=== PATIENT | male | born 1950 | race African-American/Black ===

== ENCOUNTER 2019-07-28 11:22 | Inpatient (IN) | payer MEDICARE, MEDICAID ==
[~2019-07-28] VITALS: Ht 190.5 cm; Wt 68.0 kg
[2019-07-28 12:33] LABS: BASOPHILS % 0.8 % (0.0-2.0); EOSINOPHILS % 4.2 % (0.0-5.0); HEMATOCRIT. 32.9 % (42.0-52.0); HEMOGLOBIN. 10.9 g/dL (14.0-18.0); LYMPHOCYTES % 24.1 % (20.0-50.0); MEAN CORPUSCULAR HEMOGLOBIN 27.3 pg (28.0-32.0); MEAN CORPUSCULAR VOLUME 82.5 fL (80.0-94.0); MEAN PLATELET VOLUME 8.6 fl (7.4-10.4); MONOCYTES % 7.5 % (2.0-8.0); NEUTROPHILS % 63.4 % (40.0-76.0); PLATELET 222 x1000/uL (130-400); RED BLOOD CELL COUNT 3.99 mill/uL (4.7-6.1); RED CELL DISTRIBUTION WIDTH 15.4 % (11.6-14.6)
[2019-07-28 12:39] LABS: CHLORIDE 110 mEq/L (98-107)
[2019-07-28] MEDS ORDERED: GUAIFENESIN 200MG/10ML SUGAR FREE UDC PO PRN (14:15)
[2019-07-28] MEDS ORDERED: NITROGLYCERIN 0.4MG TABLET SL SL PRN (14:15)
[2019-07-28] MEDS ORDERED: IPRATROPIUM/ALBUTEROL 0.5-3(2.5)MG/3ML NEB HHN PRN (14:15)
[2019-07-28] MEDS ORDERED: ONDANSETRON HCL 4MG/2ML INJ IV PRN (14:15)
[2019-07-28] MEDS ORDERED: ACETAMINOPHEN 325MG TABLET PO PRN (14:15)
[2019-07-28] MEDS ORDERED: CLONIDINE 0.1MG TABLET PO PRN (14:15)
[2019-07-28] MEDS ORDERED: DOCUSATE SODIUM 100MG CAPSULE PO PRN (14:15)
[2019-07-28] MEDS ORDERED: LORAZEPAM 0.5MG TABLET PO PRN (14:15)
[2019-07-28] MEDS ORDERED: MAGNESIUM/ALUMINUM HYDROXIDE/SIMETHICONE 30ML UDC PO PRN (14:15)
[2019-07-28 14:48] LABS: ETHANOL BLOOD < 10 mg/dL
[2019-07-28 14:51] LABS: TOTAL IRON BINDING CAPACITY 234 ug/dL (250-450)
[2019-07-28 14:52] LABS: FOLIC ACID (FOLATE) SERUM 12.8 ng/mL (>5.38)
[2019-07-28 14:53] LABS: T4 FREE 1.23 ng/dL (0.76-1.46)
[2019-07-28] MEDS ORDERED: POTASSIUM CHLORIDE 20MEQ TABLET SR PO NR (15:20)
[2019-07-28] MEDS ORDERED: TRAMADOL 50MG TABLET PO PRN (16:13)
[2019-07-28] MEDS ORDERED: KETOROLAC 15MG/ML VIAL IV PRN (16:13)
[2019-07-28 18:44] VITALS: BP 156/56
[2019-07-28 20:00] VITALS: BP 145/63
[2019-07-28] MEDS ORDERED: ZOLPIDEM TARTRATE 5MG TABLET PO PRN (21:00)
[2019-07-28] MEDS: ENOXAPARIN 40MG/0.4ML SYR SUBCUT SCH (21:47)
[2019-07-28] MEDS: FAMOTIDINE 20MG TABLET PO SCH (21:47)
[2019-07-28] MEDS: SUCRALFATE 1 G/10 ML UDC PO SCH (21:47)
[2019-07-28] MEDS: FERROUS SULFATE 300MG/5ML UDC PO SCH (21:48)
[2019-07-29] VITALS: BP 104/47
[2019-07-29 00:02] LABS: CREATINE KINASE MB FRACTION 4.9 ng/mL (0.5-3.6)
[2019-07-29 08:00] VITALS: BP 114/70
[2019-07-29 08:05] LABS: CREATINE KINASE MB FRACTION 3.2 ng/mL (0.5-3.6)
[2019-07-29] MEDS: SUCRALFATE 1 G/10 ML UDC PO SCH ×4 (08:44→20:34)
[2019-07-29] MEDS: FERROUS SULFATE 300MG/5ML UDC PO SCH ×3 (08:44→17:37)
[2019-07-29] MEDS: FAMOTIDINE 20MG TABLET PO SCH ×2 (08:45→20:34)
[2019-07-29] MEDS: ASPIRIN 325MG EC TABLET PO SCH (08:45)
[2019-07-29 12:00] VITALS: BP 125/77
[2019-07-29 16:00] VITALS: BP 110/57
[2019-07-29 20:00] VITALS: BP 126/49
[2019-07-29] MEDS: ENOXAPARIN 40MG/0.4ML SYR SUBCUT SCH (20:34)
[2019-07-30] VITALS: BP 132/58
[2019-07-30 04:00] VITALS: BP 131/62
[2019-07-30] MEDS: SUCRALFATE 1 G/10 ML UDC PO SCH (08:22)
[2019-07-30] MEDS: FERROUS SULFATE 300MG/5ML UDC PO SCH (08:23)
[2019-07-30] MEDS: ASPIRIN 325MG EC TABLET PO SCH (08:24)
[2019-07-30] MEDS: FAMOTIDINE 20MG TABLET PO SCH (08:24)
== END 2019-07-30 09:29 | disposition home or self-care (01) | DRG 593 ==
LOC: ER 11:27 → 7WST 13:36 → EDBEDREQTM 13:41 → SUPCPDRO 14:07 → ENRESERV 17:13 → 7WST 20:44
PROVIDERS: ADMIT Internal Medicine; ATTEND Internal Medicine
DX: L89.323 Pressure ulcer of left buttock, stage 3 (principal); I69.354 Hemiplegia and hemiparesis following cerebral infarction affecting left non-dominant side; E44.1 Mild protein-calorie malnutrition; L89.159 Pressure ulcer of sacral region, unspecified stage; L89.313 Pressure ulcer of right buttock, stage 3; R60.0 Localized edema; E87.6 Hypokalemia; D63.8 Anemia in other chronic diseases classified elsewhere; I10 Essential (primary) hypertension; R07.2 Precordial pain; J44.9 Chronic obstructive pulmonary disease, unspecified; R26.2 Difficulty in walking, not elsewhere classified
CPT/HCPCS: 36415; 71045; 80320; 82550; 82553; 82607; 82746; 83036; 83540; 83550; 83880; 84134; 84439; 84443; 84484; 93005; 93306; 93970; 97162; 99285; J1650; G0480

== ENCOUNTER 2019-10-28 16:54 | Emergency (ER) | payer MEDICARE, MEDICAID ==
[~2019-10-28] VITALS: Ht 182.9 cm; Wt 80.0 kg
[2019-10-28 17:16] VITALS: BP 148/78
[2019-10-28] MEDS ORDERED: HYDROCODONE/APAP 7.5/325MG 1 TAB TABLET PO ONE (21:30)
[2019-10-28] MEDS ORDERED: IBUPROFEN 800MG TABLET PO ONE (21:30)
== END 2019-10-28 23:44 | disposition home or self-care (01) ==
LOC: ER 16:54
DX: S93.402A Sprain of unspecified ligament of left ankle, initial encounter (principal); W01.0XXA Fall on same level from slipping, tripping and stumbling without subsequent striking against object, initial encounter; Y93.01 Activity, walking, marching and hiking; Y92.89 Other specified places as the place of occurrence of the external cause
CPT/HCPCS: 29515; 73610; 99283

== ENCOUNTER 2020-03-11 14:38 | Emergency (ER) | payer MEDICARE, MEDICAID ==
[~2020-03-11] VITALS: Ht 177.8 cm; Wt 69.0 kg
[2020-03-11] MEDS ORDERED: CEPHALEXIN 250MG CAPSULE PO ONE (16:15)
[2020-03-11] MEDS ORDERED: ACETAMINOPHEN 500MG TABLET PO ONE (16:15)
[2020-03-11] MEDS ORDERED: SULFAMETHOXAZOLE/TRIMETHOPRIM 800/160MG TABLET PO ONE (16:15)
[2020-03-11 17:35] VITALS: BP 138/66
== END 2020-03-11 19:30 | disposition home or self-care (01) ==
LOC: ER 15:04
DX: L03.116 Cellulitis of left lower limb (principal); L03.115 Cellulitis of right lower limb; R03.0 Elevated blood-pressure reading, without diagnosis of hypertension; Z59.0 Homelessness
CPT/HCPCS: 99284

== ENCOUNTER 2020-05-02 09:00 | Inpatient (IN) | payer MEDICARE, MEDICAID ==
[~2020-05-02] VITALS: Ht 180.3 cm; Wt 72.6 kg
[2020-05-02] MEDS ORDERED: HYDROCODONE/ACETAMINOPHEN 5/325MG TABLET PO STA (09:47)
[2020-05-02 10:05] LABS: BASOPHILS % 0.6 % (0.0-2.0); EOSINOPHILS % 4.7 % (0.0-5.0); HEMATOCRIT. 32.9 % (42.0-52.0); HEMOGLOBIN. 10.9 g/dL (14.0-18.0); LYMPHOCYTES % 21.6 % (20.0-50.0); MEAN CORPUSCULAR HEMOGLOBIN 27.4 pg (28.0-32.0); MEAN CORPUSCULAR VOLUME 82.8 fL (80.0-94.0); MEAN PLATELET VOLUME 8.4 fl (7.4-10.4); MONOCYTES % 6.9 % (2.0-8.0); NEUTROPHILS % 66.2 % (40.0-76.0); PLATELET 228 x1000/uL (130-400); PROTHROMBIN TIME 10.3 sec (9.6-11.0); RED BLOOD CELL COUNT 3.98 mill/uL (4.7-6.1); RED CELL DISTRIBUTION WIDTH 15.1 % (11.6-14.6)
[2020-05-02 10:06] LABS: CHLORIDE 108 mEq/L (98-107)
[2020-05-02] MEDS: DEXT 5%/0.45% NACL 1000ML 1,000 ML IV SCH (12:14)
[2020-05-02] MEDS ORDERED: CLONIDINE 0.1MG TABLET PO PRN (12:15)
[2020-05-02] MEDS ORDERED: MAGNESIUM/ALUMINUM HYDROXIDE/SIMETHICONE 30ML UDC PO PRN (12:15)
[2020-05-02] MEDS ORDERED: ONDANSETRON HCL 4MG/2ML INJ IV PRN (12:15)
[2020-05-02] MEDS ORDERED: IPRATROPIUM/ALBUTEROL 0.5-3(2.5)MG/3ML NEB NEB PRN (12:15)
[2020-05-02] MEDS ORDERED: DOCUSATE SODIUM 100MG CAPSULE PO PRN (12:15)
[2020-05-02] MEDS ORDERED: DIPHENHYDRAMINE 50MG/ML VIAL IV PRN (12:15)
[2020-05-02] MEDS ORDERED: ACETAMINOPHEN 325MG TABLET PO PRN (12:15)
[2020-05-02] MEDS ORDERED: NA PHOS,M-B/NA PHOS,DI-BA ENEMA 118ML PR PRN (12:15)
[2020-05-02] MEDS ORDERED: MORPHINE SULFATE 2 MG/ML CPJ (NOT FOR IM USE) IV PRN (12:15)
[2020-05-02] MEDS ORDERED: LORAZEPAM 2MG/ML CPJ IV PRN (12:15)
[2020-05-02] MEDS ORDERED: GUAIFENESIN 200MG/10ML SUGAR FREE UDC PO PRN (12:15)
[2020-05-02] MEDS ORDERED: IOHEXOL-300 100 ML BOTTLE ONE (12:56)
[2020-05-02] MEDS: ENOXAPARIN 40MG/0.4ML SYR SUBCUT SCH (13:00)
[2020-05-02 15:00] VITALS: BP 145/82
[2020-05-02 17:34] LABS: CHLORIDE 106 mEq/L (98-107)
[2020-05-02 20:00] VITALS: BP 149/47
[2020-05-02] MEDS: HYDROCODONE/ACETAMINOPHEN 5/325MG TABLET PO PRN (22:53)
[2020-05-03] VITALS: BP_SYST 116; BP_SYST 126; BP_DIAS 50; BP_DIAS 59
[2020-05-03 04:00] VITALS: BP 112/55
[2020-05-03] MEDS: DEXT 5%/0.45% NACL 1000ML 1,000 ML IV SCH ×2 (05:26→21:16)
[2020-05-03 07:19] LABS: BASOPHILS % 0.7 % (0.0-2.0); EOSINOPHILS % 6.6 % (0.0-5.0); HEMATOCRIT. 30.8 % (42.0-52.0); HEMOGLOBIN. 10.3 g/dL (14.0-18.0); LYMPHOCYTES % 36.2 % (20.0-50.0); MEAN CORPUSCULAR HEMOGLOBIN 27.4 pg (28.0-32.0); MEAN CORPUSCULAR VOLUME 82.4 fL (80.0-94.0); MEAN PLATELET VOLUME 8.7 fl (7.4-10.4); MONOCYTES % 6.4 % (2.0-8.0); NEUTROPHILS % 50.1 % (40.0-76.0); PLATELET 189 x1000/uL (130-400); RED BLOOD CELL COUNT 3.74 mill/uL (4.7-6.1); RED CELL DISTRIBUTION WIDTH 14.5 % (11.6-14.6)
[2020-05-03 07:20] LABS: CHLORIDE 108 mEq/L (98-107)
[2020-05-03 07:27] LABS: LDL CHOLESTEROL 97 mg/dL (5-100)
[2020-05-03 07:28] LABS: HDL CHOLESTEROL 57 mg/dL (40-59)
[2020-05-03 07:29] LABS: T4 FREE 0.94 ng/dL (0.76-1.46)
[2020-05-03 08:00] VITALS: BP 116/65
[2020-05-03] MEDS: ENOXAPARIN 40MG/0.4ML SYR SUBCUT SCH (09:45)
[2020-05-03 12:00] VITALS: BP 110/54
[2020-05-03 20:00] VITALS: BP 116/73
[2020-05-04] VITALS: BP 115/75
[2020-05-04 04:00] VITALS: BP 114/64
[2020-05-04] MEDS: HYDROCODONE/ACETAMINOPHEN 5/325MG TABLET PO PRN (04:22)
[2020-05-04 08:00] VITALS: BP 116/78
[2020-05-04] MEDS: ENOXAPARIN 40MG/0.4ML SYR SUBCUT SCH (09:00)
== END 2020-05-04 09:18 | disposition left against medical advice (07) | DRG 340 ==
LOC: ER 09:18 → EDBEDREQ 12:11 → EDBEDREQTM 12:11 → 6EST 12:18 → ENRESERV 14:25
PROVIDERS: ADMIT Internal Medicine; ATTEND Internal Medicine
DX: S72.111A Displaced fracture of greater trochanter of right femur, initial encounter for closed fracture (principal); S72.112A Displaced fracture of greater trochanter of left femur, initial encounter for closed fracture; S40.011A Contusion of right shoulder, initial encounter; E78.5 Hyperlipidemia, unspecified; I10 Essential (primary) hypertension; W18.30XA Fall on same level, unspecified, initial encounter; Z53.29 Procedure and treatment not carried out because of patient's decision for other reasons; R26.2 Difficulty in walking, not elsewhere classified; Z59.0 Homelessness; Z82.49 Family history of ischemic heart disease and other diseases of the circulatory system; Y93.89 Activity, other specified; Y92.811 Bus as the place of occurrence of the external cause; Y99.8 Other external cause status
CPT/HCPCS: 36415; 71260; 73030; 73502; 74177; 80048; 80053; 80061; 84439; 84443; 85025; 99285; J1650; J2270; Q9967

== ENCOUNTER 2020-06-07 14:46 | Emergency (ER) | payer MEDICARE, MEDICAID ==
[~2020-06-07] VITALS: Ht 177.8 cm; Wt 80.0 kg
[2020-06-07 16:36] LABS: BASOPHILS % 0.9 % (0.0-2.0); EOSINOPHILS % 3.8 % (0.0-5.0); HEMATOCRIT. 30.9 % (42.0-52.0); HEMOGLOBIN. 9.9 g/dL (14.0-18.0); LYMPHOCYTES % 34.3 % (20.0-50.0); MEAN CORPUSCULAR HEMOGLOBIN 26.2 pg (28.0-32.0); MEAN CORPUSCULAR VOLUME 81.5 fL (80.0-94.0); MEAN PLATELET VOLUME 8.8 fl (7.4-10.4); MONOCYTES % 8.5 % (2.0-8.0); NEUTROPHILS % 52.5 % (40.0-76.0); PLATELET 210 x1000/uL (130-400); RED BLOOD CELL COUNT 3.79 mill/uL (4.7-6.1); RED CELL DISTRIBUTION WIDTH 14.8 % (11.6-14.6)
[2020-06-07 16:41] LABS: CHLORIDE 110 mEq/L (98-107)
[2020-06-07 18:26] LABS: CLARITY URINE CLEAR (CLEAR); COLOR URINE YELLOW (YELLOW); KETONES URINE NEGATIVE (NEGATIVE); LEUKOCYTE ESTERASE URINE 3+ (NEGATIVE); NITRITE URINE NEGATIVE (NEGATIVE); OCCULT BLOOD URINE 2+ (NEGATIVE); PH URINE 7.5 (4.5-8.0); PROTEIN URINE 1+ (NEGATIVE); SPECIFIC GRAVITY URINE 1.012 (1.005-1.030); UROBILINOGEN URINE 0.2 E.U./dL (0.2-1.0)
[2020-06-07 18:47] LABS: *AMPHETAMINES SCREEN URINE NEGATIVE (NEGATIVE); *BARBITURATES SCREEN URINE NEGATIVE (NEGATIVE)
[2020-06-07 18:48] LABS: *BENZODIAZEPINES SCREEN URINE NEGATIVE (NEGATIVE); *COCAINE SCREEN URINE NEGATIVE (NEGATIVE); CANNABINOID URINE SCREEN NEGATIVE (NEGATIVE); METHADONE URINE SCREEN NEGATIVE (NEGATIVE); OPIATES URINE SCREEN NEGATIVE (NEGATIVE); PHENCYCLIDINE URINE SCREEN NEGATIVE (NEGATIVE)
[2020-06-07] MEDS ORDERED: SULFAMETHOXAZOLE/TRIMETHOPRIM 800/160MG TABLET PO ONE (21:15)
[2020-06-07] MEDS ORDERED: MAGNESIUM/ALUMINUM HYDROXIDE/SIMETHICONE 30ML UDC PO PRN (23:00)
[2020-06-07] MEDS ORDERED: IPRATROPIUM/ALBUTEROL 0.5-3(2.5)MG/3ML NEB HHN PRN (23:00)
[2020-06-07] MEDS ORDERED: GUAIFENESIN 200MG/10ML SUGAR FREE UDC PO PRN (23:00)
[2020-06-07] MEDS ORDERED: LORAZEPAM 2MG/ML CPJ IV PRN (23:00)
[2020-06-07] MEDS ORDERED: CLONIDINE 0.1MG TABLET PO PRN (23:00)
[2020-06-07] MEDS ORDERED: DOCUSATE SODIUM 100MG CAPSULE PO PRN (23:00)
[2020-06-07] MEDS ORDERED: HYDROCODONE/ACETAMINOPHEN 10/325MG TABLET PO PRN (23:00)
[2020-06-07] MEDS ORDERED: HYDRALAZINE 20MG/ML VIAL IV PRN (23:00)
[2020-06-07] MEDS ORDERED: ACETAMINOPHEN 325MG TABLET PO PRN (23:00)
[2020-06-07] MEDS ORDERED: DIPHENHYDRAMINE 50MG/ML VIAL IV PRN (23:00)
[2020-06-07] MEDS ORDERED: MORPHINE SULFATE 2 MG/ML CPJ (NOT FOR IM USE) IV PRN (23:00)
[2020-06-07] MEDS ORDERED: CEFTRIAXONE 1 G PREMIX 50 ML IV SCH (23:00)
[2020-06-07] MEDS ORDERED: ONDANSETRON HCL 4MG/2ML INJ IV PRN (23:00)
[2020-06-08] MEDS ORDERED: CEFTRIAXONE 1,000 MG in DEXTROSE 5% WATER 50 ML IV SCH ×2
[2020-06-08 00:47] LABS: HEPATITIS B SURFACE ANTIGEN NEGATIVE
[2020-06-08 01:17] LABS: HEPATITIS A AB IGM NEGATIVE (NEGATIVE)
[2020-06-08 02:23] VITALS: BP 124/55
[2020-06-08] MEDS ORDERED: SODIUM CHLORIDE 0.9% INJ 3ML FLUSH IVF SCH (06:00)
[2020-06-08] MEDS ORDERED: ENOXAPARIN 40MG/0.4ML SYR SUBCUT SCH (09:00)
== END 2020-06-08 04:26 | disposition left against medical advice (07) ==
LOC: ER 14:46 → CANBEDREQ 06-08 05:16
DX: Z03.818 Encounter for observation for suspected exposure to other biological agents ruled out (principal); S72.002S Fracture of unspecified part of neck of left femur, sequela; R55 Syncope and collapse; N10 Acute pyelonephritis; N20.0 Calculus of kidney; Z59.0 Homelessness; E88.09 Other disorders of plasma-protein metabolism, not elsewhere classified; D72.819 Decreased white blood cell count, unspecified; D72.821 Monocytosis (symptomatic); D50.9 Iron deficiency anemia, unspecified; E16.2 Hypoglycemia, unspecified; X58.XXXS Exposure to other specified factors, sequela
CPT/HCPCS: 36415; 71045; 72040; 72100; 73590; 73620; 76700; 80053; 80305; 81003; 83605; 83880; 84484; 85025; 85651; 86705; 86709; 86803; 87040; 87086; 87340; 93005; 93970; 96365; 99285; J0696; J7060

== ENCOUNTER 2020-06-15 04:22 | Emergency (ER) | payer MEDICARE, MEDICAID ==
[~2020-06-15] VITALS: Ht 182.9 cm; Wt 82.0 kg
[2020-06-15 04:24] VITALS: BP 115/64
[2020-06-15] MEDS ORDERED: ACETAMINOPHEN 325MG TABLET PO ONE (06:30)
== END 2020-06-15 07:12 | disposition home or self-care (01) ==
LOC: ER 04:22
DX: S90.32XA Contusion of left foot, initial encounter (principal); V03.90XA Pedestrian on foot injured in collision with car, pick-up truck or van, unspecified whether traffic or nontraffic accident, initial encounter; Y93.89 Activity, other specified; Y92.488 Other paved roadways as the place of occurrence of the external cause; I10 Essential (primary) hypertension
CPT/HCPCS: 73630; 99283; Z7610

== ENCOUNTER 2020-06-22 11:34 | Emergency (ER) | payer MEDICARE, MEDICAID ==
[~2020-06-22] VITALS: Ht 175.3 cm; Wt 82.0 kg
[2020-06-22 11:45] VITALS: BP 134/80
== END 2020-06-22 13:14 | disposition left against medical advice (07) ==
LOC: ER 12:53
DX: M25.472 Effusion, left ankle (principal); M25.572 Pain in left ankle and joints of left foot
CPT/HCPCS: 99283

== ENCOUNTER 2020-11-28 22:09 | Emergency (ER) | payer MEDICARE, MEDICAID ==
[~2020-11-28] VITALS: Ht 177.8 cm; Wt 80.0 kg
[2020-11-29 06:00] VITALS: BP 124/69
== END 2020-11-29 09:56 | disposition home or self-care (01) ==
LOC: ER 22:09
DX: S16.1XXA Strain of muscle, fascia and tendon at neck level, initial encounter (principal); Z86.73 Personal history of transient ischemic attack (TIA), and cerebral infarction without residual deficits; X58.XXXA Exposure to other specified factors, initial encounter; Y93.89 Activity, other specified; Y92.89 Other specified places as the place of occurrence of the external cause; Y99.8 Other external cause status
CPT/HCPCS: 71045; 74176; 99285

== ENCOUNTER 2020-12-28 13:25 | Inpatient (IN) | payer MEDICARE, MEDICAID ==
[~2020-12-28] VITALS: Ht 180.3 cm; Wt 73.9 kg
[2020-12-28 14:11] LABS: HEMATOCRIT. 32.3 % (42.0-52.0); HEMOGLOBIN. 10.6 g/dL (14.0-18.0); MEAN CORPUSCULAR HEMOGLOBIN 26.5 pg (28.0-32.0); MEAN CORPUSCULAR VOLUME 80.8 fL (80.0-94.0); MEAN PLATELET VOLUME 8.5 fl (7.4-10.4); PLATELET 204 x1000/uL (130-400); RED CELL DISTRIBUTION WIDTH 16.5 % (11.6-14.6)
[2020-12-28 14:20] LABS: PROTHROMBIN TIME 10.6 sec (9.6-11.0)
[2020-12-28 14:21] LABS: CHLORIDE 114 mEq/L (98-107)
[2020-12-28 14:30] LABS: PLATELET ESTIMATE NORMAL
[2020-12-28 15:36] LABS: CLARITY URINE TURBID (CLEAR); COLOR URINE YELLOW (YELLOW); KETONES URINE TRACE (NEGATIVE); LEUKOCYTE ESTERASE URINE 2+ (NEGATIVE); NITRITE URINE NEGATIVE (NEGATIVE); OCCULT BLOOD URINE 2+ (NEGATIVE); PH URINE 5.5 (4.5-8.0); PROTEIN URINE 2+ (NEGATIVE); SPECIFIC GRAVITY URINE 1.027 (1.005-1.030)
[2020-12-28] MEDS ORDERED: CEFTRIAXONE 1 G PREMIX 50 ML IV ONE (15:45)
[2020-12-28] MEDS ORDERED: ACETAMINOPHEN 325MG TABLET PO PRN (16:00)
[2020-12-28] MEDS ORDERED: LORAZEPAM 2MG/ML CPJ IV PRN (16:00)
[2020-12-28] MEDS ORDERED: DIPHENHYDRAMINE 50MG/ML VIAL IV PRN (16:00)
[2020-12-28] MEDS ORDERED: DOCUSATE SODIUM 100MG CAPSULE PO PRN (16:00)
[2020-12-28] MEDS ORDERED: ONDANSETRON HCL 4MG/2ML INJ IV PRN (16:00)
[2020-12-28] MEDS ORDERED: ENOXAPARIN 40MG/0.4ML SYR SUBCUT SCH (16:00)
[2020-12-28] MEDS ORDERED: HYDRALAZINE 20MG/ML VIAL IV PRN (16:00)
[2020-12-28] MEDS ORDERED: MAGNESIUM/ALUMINUM HYDROXIDE/SIMETHICONE 30ML UDC PO PRN (16:00)
[2020-12-28] MEDS ORDERED: CLONIDINE 0.1MG TABLET PO PRN (16:00)
[2020-12-28] MEDS ORDERED: GUAIFENESIN 200MG/10ML SUGAR FREE UDC PO PRN (16:00)
[2020-12-28] MEDS ORDERED: MORPHINE SULFATE 2 MG/ML CPJ (NOT FOR IM USE) IV PRN (16:00)
[2020-12-28] MEDS ORDERED: HYDROCODONE/ACETAMINOPHEN 5/325MG TABLET PO PRN (16:00)
[2020-12-28] MEDS ORDERED: IPRATROPIUM/ALBUTEROL 0.5-3(2.5)MG/3ML NEB HHN PRN (16:00)
[2020-12-28 18:44] LABS: METHADONE URINE SCREEN NEGATIVE (NEGATIVE); OPIATES URINE SCREEN NEGATIVE (NEGATIVE)
[2020-12-28 18:45] LABS: *AMPHETAMINES SCREEN URINE NEGATIVE (NEGATIVE); *BARBITURATES SCREEN URINE NEGATIVE (NEGATIVE); *BENZODIAZEPINES SCREEN URINE NEGATIVE (NEGATIVE); *COCAINE SCREEN URINE NEGATIVE (NEGATIVE); CANNABINOID URINE SCREEN NEGATIVE (NEGATIVE); PHENCYCLIDINE URINE SCREEN NEGATIVE (NEGATIVE)
[2020-12-28] MEDS: SODIUM CHLORIDE 0.9% INJ 3ML FLUSH IVF SCH (21:36)
[2020-12-29] VITALS: BP 134/60
[2020-12-29 01:10] LABS: CREATINE KINASE 274 IU/L (39-308)
[2020-12-29 01:11] LABS: CREATINE KINASE MB FRACTION 5.4 ng/mL (0.5-3.6)
[2020-12-29 04:00] VITALS: BP_SYST 134; BP_SYST 135; BP_DIAS 46; BP_DIAS 54
[2020-12-29] MEDS: SODIUM CHLORIDE 0.9% INJ 3ML FLUSH IVF SCH ×3 (05:14→21:40)
[2020-12-29 06:24] LABS: HEMATOCRIT. 36.7 % (42.0-52.0); HEMOGLOBIN. 11.7 g/dL (14.0-18.0); MEAN CORPUSCULAR VOLUME 81.3 fL (80.0-94.0); MEAN PLATELET VOLUME 9.3 fl (7.4-10.4); PLATELET 212 x1000/uL (130-400); RED BLOOD CELL COUNT 4.51 mill/uL (4.7-6.1); RED CELL DISTRIBUTION WIDTH 16.2 % (11.6-14.6)
[2020-12-29 06:52] LABS: CHLORIDE 109 mEq/L (98-107)
[2020-12-29 07:03] LABS: CREATINE KINASE 312 IU/L (39-308)
[2020-12-29 07:08] LABS: CREATINE KINASE MB FRACTION 6.7 ng/mL (0.5-3.6)
[2020-12-29 08:00] VITALS: BP 118/48
[2020-12-29] MEDS: ENOXAPARIN 40MG/0.4ML SYR SUBCUT SCH ×2 (08:46→09:00)
[2020-12-29 12:00] VITALS: BP 113/43
[2020-12-29] MEDS: FUROSEMIDE 40MG/4ML VIAL IVP SCH (12:26)
[2020-12-29 16:00] VITALS: BP 120/48
[2020-12-29 16:02] LABS: PLATELET ESTIMATE NORMAL
[2020-12-29 20:00] VITALS: BP 115/79
[2020-12-29] MEDS ORDERED: ATORVASTATIN CALCIUM 20MG TABLET PO SCH (21:00)
[2020-12-30] VITALS: BP 131/57
[2020-12-30 04:00] VITALS: BP 112/64
[2020-12-30] MEDS: SODIUM CHLORIDE 0.9% INJ 3ML FLUSH IVF SCH ×2 (06:11→14:22)
[2020-12-30 07:23] LABS: HEMOGLOBIN. 11.8 g/dL (14.0-18.0); MEAN CORPUSCULAR HEMOGLOBIN 25.9 pg (28.0-32.0); MEAN PLATELET VOLUME 8.8 fl (7.4-10.4); PLATELET 206 x1000/uL (130-400); RED BLOOD CELL COUNT 4.57 mill/uL (4.7-6.1); RED CELL DISTRIBUTION WIDTH 16.7 % (11.6-14.6)
[2020-12-30 07:39] LABS: CHLORIDE 107 mEq/L (98-107)
[2020-12-30 08:00] VITALS: BP 120/79
[2020-12-30] MEDS: ENOXAPARIN 40MG/0.4ML SYR SUBCUT SCH (09:00)
[2020-12-30] MEDS: FUROSEMIDE 40MG/4ML VIAL IVP SCH (10:22)
[2020-12-30 16:00] VITALS: BP 119/68
[2020-12-30 22:15] LABS: PLATELET ESTIMATE NORMAL
== END 2020-12-30 18:35 | disposition left against medical advice (07) | DRG 52 ==
LOC: ER 13:25 → EDBEDREQ 13:36 → 5WST 15:41 → EDBEDREQTM 15:52 → EDBEDREQ 15:52 → ENRESERV 21:44
PROVIDERS: ADMIT Internal Medicine; ATTEND Internal Medicine
DX: G93.40 Encephalopathy, unspecified (principal); D64.9 Anemia, unspecified; I10 Essential (primary) hypertension; I25.10 Atherosclerotic heart disease of native coronary artery without angina pectoris; J44.9 Chronic obstructive pulmonary disease, unspecified; M25.551 Pain in right hip; E78.5 Hyperlipidemia, unspecified; R00.1 Bradycardia, unspecified; Z53.29 Procedure and treatment not carried out because of patient's decision for other reasons; Z59.0 Homelessness; I69.30 Unspecified sequelae of cerebral infarction
CPT/HCPCS: 36415; 71045; 80048; 80053; 80061; 80305; 81003; 82550; 82553; 83735; 83880; 84443; 84484; 85025; 86850; 86900; 93005; 93306; 93880; 93970; 99285; A6261; J1200; J1650; J1940

== ENCOUNTER 2021-03-22 11:22 | Inpatient (IN) | payer MEDICARE, MEDICAID ==
[~2021-03-22] VITALS: Ht 172.7 cm; Wt 71.7 kg
[2021-03-22] MEDS ORDERED: IBUPROFEN 600MG TABLET PO STA (11:35)
[2021-03-22 12:17] LABS: HEMATOCRIT. 30.9 % (42.0-52.0); HEMOGLOBIN. 10.1 g/dL (14.0-18.0); MEAN CORPUSCULAR HEMOGLOBIN 26.8 pg (28.0-32.0); MEAN CORPUSCULAR VOLUME 82.2 fL (80.0-94.0); MEAN PLATELET VOLUME 8.7 fl (7.4-10.4); PLATELET 189 x1000/uL (130-400); RED BLOOD CELL COUNT 3.76 mill/uL (4.7-6.1); RED CELL DISTRIBUTION WIDTH 15.5 % (11.6-14.6)
[2021-03-22 12:22] LABS: CHLORIDE 111 mEq/L (98-107)
[2021-03-22 12:26] LABS: ETHANOL BLOOD < 10 mg/dL
[2021-03-22 13:07] LABS: PLATELET ESTIMATE NORMAL
[2021-03-22 14:43] LABS: CREATINE KINASE 316 IU/L (39-308)
[2021-03-22 15:23] LABS: CLARITY URINE CLEAR (CLEAR); COLOR URINE YELLOW (YELLOW); KETONES URINE NEGATIVE (NEGATIVE); LEUKOCYTE ESTERASE URINE 2+ (NEGATIVE); NITRITE URINE NEGATIVE (NEGATIVE); OCCULT BLOOD URINE TRACE (NEGATIVE); PH URINE 7.5 (4.5-8.0); PROTEIN URINE 1+ (NEGATIVE)
[2021-03-22 15:31] LABS: *AMPHETAMINES SCREEN URINE NEGATIVE (NEGATIVE); *BARBITURATES SCREEN URINE NEGATIVE (NEGATIVE); *BENZODIAZEPINES SCREEN URINE NEGATIVE (NEGATIVE); *COCAINE SCREEN URINE NEGATIVE (NEGATIVE)
[2021-03-22 15:32] LABS: CANNABINOID URINE SCREEN NEGATIVE (NEGATIVE); METHADONE URINE SCREEN NEGATIVE (NEGATIVE); OPIATES URINE SCREEN NEGATIVE (NEGATIVE); PHENCYCLIDINE URINE SCREEN NEGATIVE (NEGATIVE)
[2021-03-22] MEDS ORDERED: CEFTRIAXONE 1 G PREMIX 50 ML IV ONE (15:45)
[2021-03-22 23:09] VITALS: BP 142/70
[2021-03-22] MEDS ORDERED: HYDROCODONE/ACETAMINOPHEN 5/325MG TABLET PO PRN (23:45)
[2021-03-23] VITALS: BP 146/46
[2021-03-23] MEDS: ENOXAPARIN 40MG/0.4ML SYR SUBCUT SCH (00:16)
[2021-03-23 04:00] VITALS: BP 142/60
[2021-03-23 08:00] VITALS: BP 153/60
[2021-03-23] MEDS: AMLODIPINE 10MG TABLET PO SCH (09:25)
[2021-03-23] MEDS: FAMOTIDINE 20MG/2ML VIAL IV SCH (09:25)
[2021-03-23 12:00] VITALS: BP 155/57
[2021-03-23 16:00] VITALS: BP 152/62
[2021-03-23] MEDS ORDERED: CEFTRIAXONE 1,000 MG in DEXTROSE 5% WATER 50 ML IV SCH (17:00)
[2021-03-23 20:00] VITALS: BP 141/78
[2021-03-24] VITALS: BP 129/67
[2021-03-24] MEDS: ENOXAPARIN 40MG/0.4ML SYR SUBCUT SCH
[2021-03-24 04:00] VITALS: BP 118/60
[2021-03-24 07:15] LABS: CHLORIDE 106 mEq/L (98-107)
[2021-03-24 07:29] LABS: HEMATOCRIT. 37.5 % (42.0-52.0); HEMOGLOBIN. 12.3 g/dL (14.0-18.0); MEAN CORPUSCULAR HEMOGLOBIN 26.8 pg (28.0-32.0); MEAN CORPUSCULAR VOLUME 81.6 fL (80.0-94.0); PLATELET 229 x1000/uL (130-400); RED CELL DISTRIBUTION WIDTH 15.3 % (11.6-14.6)
[2021-03-24] MEDS: AMLODIPINE 10MG TABLET PO SCH (09:00)
[2021-03-24] MEDS: FAMOTIDINE 20MG/2ML VIAL IV SCH (09:00)
[2021-03-24] MEDS: PERMETHRIN 5% CREAM 60GM TOP NR ×2 (09:43)
[2021-03-24 12:30] LABS: PLATELET ESTIMATE NORMAL
== END 2021-03-24 10:55 | disposition left against medical advice (07) | DRG 48 ==
LOC: ER 11:22 → 8WST 15:34 → EDBEDREQ 15:37 → EDBEDREQSVC 15:37 → EDBEDREQTM 15:37 → ENRESERV 20:27
PROVIDERS: ADMIT Internal Medicine; ATTEND Internal Medicine
DX: G90.8 Other disorders of autonomic nervous system (principal); N17.0 Acute kidney failure with tubular necrosis; D64.9 Anemia, unspecified; E86.0 Dehydration; N39.0 Urinary tract infection, site not specified; E44.1 Mild protein-calorie malnutrition; E87.8 Other disorders of electrolyte and fluid balance, not elsewhere classified; Z53.29 Procedure and treatment not carried out because of patient's decision for other reasons; I10 Essential (primary) hypertension; J44.9 Chronic obstructive pulmonary disease, unspecified; Z86.73 Personal history of transient ischemic attack (TIA), and cerebral infarction without residual deficits; Z68.24 Body mass index [BMI] 24.0-24.9, adult
CPT/HCPCS: 36415; 71045; 80048; 80053; 80305; 80320; 81003; 82550; 83880; 84484; 85025; 93005; 97162; 99285; C1893; J0696; J1650; J3490; J7060; G0480

== ENCOUNTER 2021-06-07 04:17 | Inpatient (IN) | payer MEDICARE, MEDICAID ==
[~2021-06-07] VITALS: Ht 177.8 cm; Wt 81.6 kg
[2021-06-07 06:02] LABS: BG BASE EXCESS 0.7 mmol/L (-2.0-2.0); BG CARBOXYHEMOGLOBIN 0.3 % (0.5-1.5); BG FRACTION INSPIRED OXYGEN 21; BG HCO3 ACT 25.3 mmol/L (22.0-26.0); BG METHEMOGLOBIN 0.4 % (0.0-1.5); BG OXYHEMOGLOBIN 95.3 % (94.0-97.0); BG PCO2 40.5 mmHg (35.0-45.0); BG PH 7.413 (7.350-7.450); BG PO2 81.5 mmHg (75.0-100.0); BG SAMPLE SITE RIGHT RADIAL; BG TOTAL HEMOGLOBIN 10.8 g/dL (12.0-18.0); BG VENT MODE ROOM AIR
[2021-06-07 06:29] LABS: BASOPHILS % 0.7 % (0.0-2.0); EOSINOPHILS % 5.9 % (0.0-5.0); HEMATOCRIT. 31.2 % (42.0-52.0); HEMOGLOBIN. 10.1 g/dL (14.0-18.0); LYMPHOCYTES % 26.4 % (20.0-50.0); MEAN CORPUSCULAR HEMOGLOBIN 26.8 pg (28.0-32.0); MEAN CORPUSCULAR VOLUME 82.5 fL (80.0-94.0); MEAN PLATELET VOLUME 8.6 fl (7.4-10.4); MONOCYTES % 8.2 % (2.0-8.0); NEUTROPHILS % 58.8 % (40.0-76.0); PLATELET 189 x1000/uL (130-400); RED BLOOD CELL COUNT 3.78 mill/uL (4.7-6.1); RED CELL DISTRIBUTION WIDTH 14.6 % (11.6-14.6)
[2021-06-07 06:36] LABS: CHLORIDE 111 mEq/L (98-107)
[2021-06-07 06:40] LABS: ETHANOL BLOOD < 10 mg/dL
[2021-06-07 09:28] LABS: CLARITY URINE CLEAR (CLEAR); COLOR URINE YELLOW (YELLOW); KETONES URINE NEGATIVE (NEGATIVE); LEUKOCYTE ESTERASE URINE 2+ (NEGATIVE); NITRITE URINE NEGATIVE (NEGATIVE); OCCULT BLOOD URINE NEGATIVE (NEGATIVE); PH URINE 7.5 (4.5-8.0); PROTEIN URINE NEGATIVE (NEGATIVE); SPECIFIC GRAVITY URINE 1.012 (1.005-1.030)
[2021-06-07 09:50] LABS: *BARBITURATES SCREEN URINE NEGATIVE (NEGATIVE); *BENZODIAZEPINES SCREEN URINE NEGATIVE (NEGATIVE); *COCAINE SCREEN URINE NEGATIVE (NEGATIVE)
[2021-06-07 09:51] LABS: *AMPHETAMINES SCREEN URINE NEGATIVE (NEGATIVE); CANNABINOID URINE SCREEN NEGATIVE (NEGATIVE); METHADONE URINE SCREEN NEGATIVE (NEGATIVE); OPIATES URINE SCREEN NEGATIVE (NEGATIVE); PHENCYCLIDINE URINE SCREEN NEGATIVE (NEGATIVE)
[2021-06-07] MEDS ORDERED: ONDANSETRON HCL 4MG/2ML INJ IV PRN (11:00)
[2021-06-07] MEDS ORDERED: IPRATROPIUM/ALBUTEROL 0.5-3(2.5)MG/3ML NEB NEB PRN (11:00)
[2021-06-07] MEDS ORDERED: MAGNESIUM/ALUMINUM HYDROXIDE/SIMETHICONE 30ML UDC PO PRN (11:00)
[2021-06-07] MEDS ORDERED: KETOROLAC 15MG/ML VIAL IV PRN (11:00)
[2021-06-07] MEDS ORDERED: LEVOFLOXACIN 500MG PREMIX 100 ML IV NR (11:00)
[2021-06-07] MEDS ORDERED: ACETAMINOPHEN 325MG TABLET PO PRN ×2 (11:00)
[2021-06-07] MEDS ORDERED: CEFTRIAXONE 1 G PREMIX 50 ML IV NR (11:00)
[2021-06-07] MEDS ORDERED: NITROGLYCERIN 0.4MG TABLET SL SL PRN (11:00)
[2021-06-07] MEDS ORDERED: DOCUSATE SODIUM 100MG CAPSULE PO PRN (11:00)
[2021-06-07] MEDS ORDERED: GUAIFENESIN 200MG/10ML SUGAR FREE UDC PO PRN (11:00)
[2021-06-07] MEDS ORDERED: CLONIDINE 0.1MG TABLET PO PRN (11:00)
[2021-06-07] MEDS: CHOLECALCIFEROL (D3) 1000 UNIT TABLET PO SCH (11:31)
[2021-06-07] MEDS: ENOXAPARIN 40MG/0.4ML SYR SUBCUT SCH (11:31)
[2021-06-07] MEDS: ZINC SULFATE 220 MG ( 50 ) CAPSULE PO SCH (11:32)
[2021-06-07] MEDS: ASCORBIC ACID 500 MG TABLET PO SCH ×2 (11:32→21:27)
[2021-06-07] MEDS: ASPIRIN 325MG EC TABLET PO SCH (11:32)
[2021-06-07 12:33] LABS: LDL CHOLESTEROL 102 mg/dL (5-100)
[2021-06-07 12:35] LABS: HDL CHOLESTEROL 79 mg/dL (40-59)
[2021-06-07 12:36] LABS: CREATINE KINASE MB FRACTION 3.4 ng/mL (0.5-3.6); TOTAL IRON BINDING CAPACITY 322 ug/dL (250-450)
[2021-06-07 12:38] LABS: CREATINE KINASE 234 IU/L (39-308)
[2021-06-07 15:25] LABS: FOLIC ACID (FOLATE) SERUM 10.7 ng/mL (>5.38)
[2021-06-07] MEDS ORDERED: FAMOTIDINE 20MG TABLET PO SCH (21:00)
[2021-06-07] MEDS ORDERED: ZOLPIDEM TARTRATE 5MG TABLET PO PRN (21:00)
[2021-06-07 23:03] LABS: CREATINE KINASE 227 IU/L (39-308)
[2021-06-07 23:04] LABS: CREATINE KINASE MB FRACTION 3.2 ng/mL (0.5-3.6)
[2021-06-08] VITALS: BP 135/64
[2021-06-08 04:00] VITALS: BP 123/57
[2021-06-08 06:29] LABS: CHLORIDE 110 mEq/L (98-107)
[2021-06-08 06:35] LABS: BASOPHILS % 0.7 % (0.0-2.0); EOSINOPHILS % 7.2 % (0.0-5.0); HEMATOCRIT. 32.9 % (42.0-52.0); HEMOGLOBIN. 10.8 g/dL (14.0-18.0); LYMPHOCYTES % 26.3 % (20.0-50.0); MEAN CORPUSCULAR HEMOGLOBIN 26.7 pg (28.0-32.0); MEAN CORPUSCULAR VOLUME 81.1 fL (80.0-94.0); MEAN PLATELET VOLUME 9.2 fl (7.4-10.4); NEUTROPHILS % 56.8 % (40.0-76.0); PLATELET 187 x1000/uL (130-400); RED BLOOD CELL COUNT 4.05 mill/uL (4.7-6.1); RED CELL DISTRIBUTION WIDTH 14.5 % (11.6-14.6)
[2021-06-08 06:40] LABS: PHOSPHORUS 3.7 mg/dL (2.5-4.9)
[2021-06-08 08:00] VITALS: BP 117/57
[2021-06-08] MEDS ORDERED: PNEUMOCOCCAL 23-VAL P-SAC VAC 0.5 ML IM ONE (08:00)
[2021-06-08] MEDS: ASCORBIC ACID 500 MG TABLET PO SCH (08:45)
[2021-06-08] MEDS: CHOLECALCIFEROL (D3) 1000 UNIT TABLET PO SCH (08:45)
[2021-06-08] MEDS: ZINC SULFATE 220 MG ( 50 ) CAPSULE PO SCH (08:45)
[2021-06-08] MEDS: ASPIRIN 325MG EC TABLET PO SCH (08:45)
[2021-06-08] MEDS ORDERED: CEFTRIAXONE 1,000 MG in DEXTROSE 5% WATER 50 ML IV SCH (09:00)
[2021-06-08] MEDS ORDERED: LEVOFLOXACIN 250MG PREMIX 50ML IV SCH ×2 (10:00→11:00)
[2021-06-08] MEDS: ENOXAPARIN 40MG/0.4ML SYR SUBCUT SCH (11:26)
[2021-06-08 12:00] VITALS: BP 141/61
== END 2021-06-08 14:30 | disposition left against medical advice (07) | DRG 720 ==
LOC: ER 04:17 → MICUSO 10:23 → ENRESERV 12:43 → CANRESERV 12:43 → 7EST 22:33
PROVIDERS: ADMIT Internal Medicine; ATTEND Internal Medicine
DX: A41.9 Sepsis, unspecified organism (principal); N17.0 Acute kidney failure with tubular necrosis; G92 Toxic encephalopathy; E44.1 Mild protein-calorie malnutrition; D63.8 Anemia in other chronic diseases classified elsewhere; N39.0 Urinary tract infection, site not specified; I10 Essential (primary) hypertension; Z53.29 Procedure and treatment not carried out because of patient's decision for other reasons; I25.10 Atherosclerotic heart disease of native coronary artery without angina pectoris; Z86.73 Personal history of transient ischemic attack (TIA), and cerebral infarction without residual deficits; Z68.25 Body mass index [BMI] 25.0-25.9, adult
CPT/HCPCS: 36415; 36600; 80053; 80061; 80305; 80320; 81003; 82140; 82375; 82550; 82553; 82607; 82728; 82746; 82805; 83036; 83540; 83550; 83615; 83735; 84100; 84145; 84484; 85025; 85379; 90732; 93970; 97166; 99285; J0696; J1650; J1956; J7060; G0480

== ENCOUNTER 2022-02-23 17:36 | Emergency (ER) | payer MEDICARE, MEDICAID ==
[~2022-02-23] VITALS: Ht 182.9 cm; Wt 91.0 kg
[2022-02-23] MEDS ORDERED: ACETAMINOPHEN 325MG TABLET PO ONE (19:00)
[2022-02-23 21:53] VITALS: BP 118/49
== END 2022-02-23 21:54 | disposition home or self-care (01) ==
LOC: ER 17:36
DX: G89.29 Other chronic pain (principal); M79.672 Pain in left foot; M79.671 Pain in right foot; Z87.81 Personal history of (healed) traumatic fracture; I11.9 Hypertensive heart disease without heart failure; Z86.73 Personal history of transient ischemic attack (TIA), and cerebral infarction without residual deficits
CPT/HCPCS: 73630; 99283

== ENCOUNTER 2022-02-27 14:55 | Emergency (ER) | payer MEDICARE, MEDICAID ==
[~2022-02-27] VITALS: Ht 182.9 cm; Wt 81.0 kg
[2022-02-27 15:05] VITALS: BP 110/68
[2022-02-27] MEDS ORDERED: ACETAMINOPHEN 325MG TABLET PO ONE (15:30)
== END 2022-02-27 17:58 | disposition left against medical advice (07) ==
LOC: ER 14:55
DX: M25.561 Pain in right knee (principal); M25.562 Pain in left knee; I10 Essential (primary) hypertension; Z86.73 Personal history of transient ischemic attack (TIA), and cerebral infarction without residual deficits
CPT/HCPCS: 99283

== ENCOUNTER 2023-06-26 14:51 | Emergency (ER) | payer MEDICARE, MEDICAID ==
[~2023-06-26] VITALS: Ht 185.4 cm; Wt 85.0 kg
[2023-06-26 14:55] VITALS: BP 134/92; PULSE 85; RESP 18; TEMP 98.2; O2SAT 100
== END 2023-06-27 03:18 | disposition home or self-care (01) ==
LOC: ER 14:51
DX: F10.129 Alcohol abuse with intoxication, unspecified (principal); R41.82 Altered mental status, unspecified; I10 Essential (primary) hypertension; Z86.73 Personal history of transient ischemic attack (TIA), and cerebral infarction without residual deficits; Y90.0 Blood alcohol level of less than 20 mg/100 ml
CPT/HCPCS: 99283